=== PATIENT | female | born 1985 | race Caucasian/White ===

== ENCOUNTER → 2016-12-19 | Outpatient (CLI) | payer OTHER ==
[2013-12-12 08:00] VITALS: BP 101/78
[~2016-12-19] MED LIST: LAMO100T5 PO; TOPI100T42 PO; ZONI100C33 PO
--- NOTE | 2016-12-19 14:52 | RAD ---
Indication: Left flank pain. The right kidney measures 10.3 x 4.8 x 4.9 cm and the left kidney measures 12.3 x 3.8 x 5.1 cm. Cortical thickness is unremarkable. No calculi are seen. No hydronephrosis on the right is identified. There is some prominence of the left renal pelvis. The study is otherwise unremarkable. The bladder is unremarkable. Impression: Left pelviectasis. The study is otherwise unremarkable.
== END | disposition home or self-care (01) ==
LOC: US 14:17
PROVIDERS: ATTEND Physician Assistant
DX: R10.9 Unspecified abdominal pain (principal)
CPT/HCPCS: 76770

== ENCOUNTER → 2017-01-03 | Outpatient (CLI) | payer OTHER ==
[2013-12-12 08:00] VITALS: BP 101/78
--- NOTE | 2017-01-03 15:23 | RAD ---
CT abdomen/pelvis without contrast 01/03/2017 at 1322 hours Indication: Severe left flank pain for 2 weeks. Comparison: CT abdomen/pelvis 05/04/2007 Technique: Multiple axial CT images of the abdomen and pelvis were acquired without intravenous contrast. Coronal and sagittal reformats are provided. Findings: Lung bases are clear. Heart size is within normal limits. The liver is normal. The spleen is normal. Bilateral adrenal glands are normal. The gallbladder is present without adjacent inflammatory changes. Pancreas is normal in appearance. No peripancreatic inflammatory changes. The abdominal aorta is normal in course and caliber. There are no enlarged lymph nodes in the abdomen or pelvis. There is no free intraperitoneal air. No free fluid within the abdomen or pelvis. There is focal cortical irregularity with parenchymal calcification in the superior pole of the left kidney as well as in the interpolar region. No definite renal calculi are identified. No calculi are identified in the ureters or urinary bladder. There is no hydronephrosis. No contour deforming renal mass. Small and large bowel are normal in caliber. A normal appendix is visualized. No pericolonic inflammatory changes are present. The urinary bladder is normal in appearance. Uterus and adnexa are within normal limits. No suspicious osseous lesions are identified. Impression: 1. Focal cortical irregularity involving the left kidney with associated parenchymal calcification may represent sequela of prior vascular or infectious insult. No calculi are identified in the collecting system, ureters or urinary bladder. Findings are stable dating back to 05/04/2007. 2. Normal-appearing appendix. 3. No acute abnormality in the abdomen or pelvis. PQRS Compliance Statement: One or more of the following individualized dose reduction techniques were utilized for this examination: 1. Automated exposure control 2. Adjustment of the mA and/or kV according to patient size 3. Use of iterative reconstruction technique
== END | disposition home or self-care (01) ==
LOC: CT 15:05
PROVIDERS: ATTEND Physician Assistant
DX: R10.9 Unspecified abdominal pain (principal)
CPT/HCPCS: 74176